=== PATIENT | female | born 1960 | race Two or more races ===

== ENCOUNTER 2021-07-29 12:48 | Inpatient (IN) | payer OTHER ==
[~2021-07-29] VITALS: Ht 243.8 cm; Wt 5.0 kg
[2021-07-29] MEDS ORDERED: BISOPROLOL FUMAR5 MG PO (13:38)
[2021-07-29] MEDS ORDERED: CRESTOR10 MG PO (13:39)
[2021-08-02] MEDS ORDERED: AMOX-CLAV 875-1 EACH PO (16:51)
[2021-08-02] MEDS ORDERED: PEPCID20 MG PO (16:52)
== END 2021-08-02 17:08 | disposition home or self-care (01) | DRG 446 ==
LOC: ER 12:48 → SURG 22:27
PROVIDERS: ADMIT Surgery; ATTEND Surgery
PROC: BW21ZZZ Computerized Tomography (CT Scan) of Abdomen and Pelvis (ICD-10-PCS; principal; 2021-07-29)
DX: K81.0 Acute cholecystitis (principal); I10 Essential (primary) hypertension; Z20.822 Contact with and (suspected) exposure to COVID-19; Z86.010 Personal history of colon polyps